=== PATIENT | male | born 1975 | race Caucasian/White ===

== ENCOUNTER 2021-04-21 23:51 | Emergency (ER) | payer OTHER, SELFPAY ==
--- NOTE | ~2021-04-21 | XR_ITS ---
EXAMINATION: XR finger 4th RT min 2V DATE: 04/22/2021 03:04 INDICATION: Laceration to the distal right fourth digit TECHNIQUE: Dorsal palmar, lateral and oblique views of the right fourth digit were obtained COMPARISON: 03/23/2011 FINDINGS: Deep dorsal sided laceration, near amputation, at the tip of the right fourth digit which Extends through the nail as well as the tuft of the distal phalanx across half of the palmar soft tis sues. 3 mm distraction of the distal tuft fragment. No radiopaque foreign bodies. No other fractures identified. 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 Remaining profil e joint spaces appear relatively preserved. IMPRESSION: 1. Near amputation of the distal tip of the right fourth digit with distracted open/compound fracture of the tuft of the distal phalanx. Reviewed, dictated and finalized at location A. IZER
[2021-04-21 23:58] VITALS: BP 139/91; PULSE 106; RESP 20; TEMP 36.4; O2SAT 100
[2021-04-22 02:45] VITALS: BP 100/72; PULSE 91; RESP 17; O2SAT 100
[2021-04-22] MEDS: TETANUS,DIPHTHERIA,AC PERTUSSIS ADULT (0.5 ML) BOOSTRIX IM (03:03)
--- NOTE | 2021-04-22 04:25 | ED.WOUNDLAC ---
HPI - Wound/Laceration General Chief Complaint: Wound/Laceration Stated Complaint: finger lac Time Seen by Provider: 04/22/21 03:30 Source: patient History of Present Illness HPI narrative: Patient presents with finger laceration. Patient reports she was is cutting potatoes was talking to friends was not paying attention and cut her finger. Reports she cut her ring finger on the tip and thinks she may have cut it off. She denies any pain to the area reports bleeding is controlled. She was concerned about that so came to the ER for evaluation. She is unsure of what her tetanus status is. Denies any other injuries . Reports her distal finger has diminished sensation reports the cut does not hurt Related Data Allergies Allergy/AdvReac Type Severity Reaction Status Date / Time No Known Allergies Allergy Verified 04/22/21 02:38 Review of Systems Review of Systems: CONSTITUTIONAL: Denies fever, chills, or sweats. EYES: Denies visual changes, redness, or discharge. ENT: Denies rhinorrhea, congestion, sore throat, or otalgia. CARDIOVASCULAR: Denies chest pain, palpitations, or edema. RESPIRATORY: Denies cough or dyspnea. GASTROINTESTINAL: Denies abdominal pain, nausea, vomiting, or diarrhea. GENITOURINARY: Denies dysuria or hematuria. SKIN: Denies rash or itching. MUSCULOSKELETAL: Denies back pain, joint pain, or myalgia. NEUROLOGIC: Denies headache, numbness, dizziness, or weakness. PSYCHIATRIC: Denies anxiety or depression. All systems reviewed & are unremarkable except as noted in HPI and below PMFSH Past Medical History Medical History Denies alcohol consumption Social History Social History (Updated 04/22/21 @ 06:13 by Barrington Crawford MD) Alcohol intake: current Exam Narrative: GENERAL: Well-appearing, well-nourished, and in no acute distress. HEAD: Normocephalic, atraumatic. EYES: PERRLA and EOMI. ENT: Nares clear, no rhinorrhea or epistaxis. Mucous membranes moist. NECK: Supple. No masses. No JVD EXTREMITIES: Partial amputation of the distal aspect of the fourth digit on the right hand diminished sensation to sharp dull on the distal tip color remains in tact limited range of motion at the DIP joint. SKIN: Warm, dry, no rash. NEURO: No focal deficits. Alert and oriented x3. PSYCH: Normal mood and affect. Course Consultations Consultation #1: Case discussed with plastics who will come in and assist with repair Date: 04/22/21 Time: 04:25 Vital Signs Vital signs: Vital Signs Temperature 36.4 C 04/21/21 23:58 Pulse Rate 106 H 04/21/21 23:58 Respiratory Rate 20 04/21/21 23:58 Blood Pressure 139/91 H 04/21/21 23:58 Pulse Oximetry 100 04/21/21 23:58 Temperature 36.4 C 04/21/21 23:58 Pulse Rate 90 04/22/21 06:38 Respiratory Rate 16 04/22/21 06:38 Blood Pressure 112/72 04/22/21 06:38 Pulse Oximetry 100 04/22/21 06:38 MDM - Wound/Laceration MDM Narrative Medical decision making narrative: H&P as above, vss, pt looks clinically well, exam partial amputation of the distal aspect of the fourth digit, remains intact however sensation is diminished, imaging does show bony fragment in the partial amputation, additional labs/img considered, symptomatic relief available as needed, to the complexes of the repair plastics was consulted who came in and perform digital repair on reevaluation pt continues to looks clinically well. Suspect isolated partial amputation. plan to tx/monitor as op w/ pcm f/u findings/plan discussed with pt, pt agree/comfortable with plan, return precautions given Imaging Data Attestation: I personally reviewed and interpreted this imaging study as follows: My impression: partial amputation of the distal tip of the 4th digit Discharge Plan Discharge Clinical Impression: Partial traumatic amputation of finger through phalanx Qualifiers: Encounter type: initial encounter Qualified Code(s): S68.629A - Partial traumatic transphalangeal amputation of unspeci
[2021-04-22 04:56] VITALS: BP 101/63; PULSE 99; RESP 15; O2SAT 99
--- NOTE | 2021-04-22 05:00 | PC.NURSE ---
Hand surgeon Dr Longo at bedside at this time.
--- NOTE | 2021-04-22 06:03 | W.PM.PROC2 ---
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 She sustained injury across the middle of the nail plate that extended through the bone leaving a nearly full width fatty palmar soft tissue pedicle. The partially amputated tip was pink and well perfused but insensate. The wound was a lisa type injury with neat margins. The patient with NKDA or chronic illnesses expressed that I should repair this injury in the Emergency Room. She had been given a TDaP. At the time of this dictation in my office I was not able to access [facility] to review any current x-ray. Description of Procedure the patient was comfortably positioned. The hand was on the supportive surface. The middle finger was anesthetized with 1% lidocaine with epinephrine as an intrathecal block. The hand was prepped with Betadine. The wound was cleansed with saline to remove any loose tissue dried blood or clot. A green tourniquet was applied to the base of the finger the wound margins were carefully examined under loupe magnification. The nail plate had been partially avulsed remaining attached to the ulnar cuticle. [employer] were carefully aligned and repaired with interrupted 5 0 nylon suture. The nail bed was carefully laid into anatomic position and the nail plate laid over the top. The nail plate was sutured to the cuticle and was supported with a jim-cross nylon suture securing it against the nail bed. Additional skin stitches were applied as needed. A Bacitracin Xeroform gauze and Coban wrap were applied that included a volar aluminum splint. The patient is discharged with instructions in wound care and follow-up. She is to be prescribed by the ER physician and I biotics for a week and pain medicine as needed. Drains No Packing No Pathology none sent Complications No immediate complications Condition stable Disposition no change
[2021-04-22 06:38] VITALS: BP 112/72; PULSE 90; RESP 16; O2SAT 100
== END 2021-04-22 06:41 | disposition home or self-care (01) ==
PROVIDERS: Emergency Provider Emergency Medicine; PCP Family Medicine
DX: S68.624A Partial traumatic transphalangeal amputation of right ring finger, initial encounter (principal); Z23 Encounter for immunization; W26.8XXA Contact with other sharp object(s), not elsewhere classified, initial encounter
CPT/HCPCS: 11760; 73140; 90471; 90715; 99283

== ENCOUNTER → 2021-05-03 14:35 | Outpatient (CLI) | payer OTHER, SELFPAY ==
--- NOTE | ~2021-05-03 | XR_ITS ---
XR finger 4th RT min 2V 05/03/2021 15:08 Indication: Displaced fracture right fourth distal phalanx. Procedure: 4 views right fourth finger Comparison: 04/22/2021 Findings: There is a displaced tuft fracture of the right fourth distal phalanx. Mild soft tissue swe lling. No foreign bodies. No other fractures. 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 Reviewed, dictated and finalized at location A. 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
== END ==
PROVIDERS: Visit Provider Plastic Surgery
DX: S62.634A Displaced fracture of distal phalanx of right ring finger, initial encounter for closed fracture (principal); M79.89 Other specified soft tissue disorders
CPT/HCPCS: 73140